=== PATIENT | female | born 1970 ===

== ENCOUNTER 2018-06-02 17:18 | Inpatient (IN) | payer MEDICAID, OTHER ==
--- NOTE | 2018-06-02 18:37 | ED PDOC ---
HPI: Psych/Substance Abuse Time Seen by Provider: 06/02/18 18:12 Chief Complaint (Nursing): Psychiatric Evaluation Chief Complaint (Provider): admission History Per: Patient Additional Complaint(s): 48 yo female, sent from [place] for direct admission to psychiatric floor; however, it was found that pt recently tested (+) for MRSA vis nasal swab. Pt unable to go to the floor at this time if acutely MRSA (+). Pt held in ED psych room at this time. Pt offers no physical complaints. Pt on 1:1 Past Medical History Reviewed: Historical Data, Nursing Documentation, Vital Signs Vital Signs: Last Vital Signs Temp 99.2 F 06/02/18 17:38 Pulse 104 H 06/02/18 17:38 Resp 20 06/02/18 17:38 BP 132/64 06/02/18 17:38 Pulse Ox 100 06/02/18 17:38 - Surgical History Surgical History: No Surg Hx - Family History Family History: States: No Known Family Hx - Living Arrangements Living Arrangements: With Family - Social History Current smoker - smoking cessation education provided: No - Allergies Allergies/Adverse Reactions: Allergies Allergy/AdvReac Type Severity Reaction Status Date / Time No Known Allergies Allergy Verified 06/02/18 17:38 Review of Systems ROS Statement: Except As Marked, All Systems Reviewed And Found Negative Physical Exam - Reviewed Nursing Documentation Reviewed: Yes Vital Signs Reviewed: Yes - Physical Exam Appears: Positive for: Well, Non-toxic, No Acute Distress Head Exam: Positive for: ATRAUMATIC, NORMAL INSPECTION, NORMOCEPHALIC Skin: Positive for: Normal Color, Warm, DRY Eye Exam: Positive for: EOMI, Normal appearance, PERRL ENT: Positive for: Normal ENT Inspection Neck: Positive for: Normal, Painless ROM Cardiovascular/Chest: Positive for: Regular Rate, Rhythm Respiratory: Positive for: CNT, Normal Breath Sounds Gastrointestinal/Abdominal: Positive for: Normal Exam, Soft Back: Positive for: Normal Inspection Extremity: Positive for: Normal ROM Neurologic/Psych: Positive for: Alert, Oriented - ECG O2 Sat by Pulse Oximetry: 100 Medical Decision Making Medical Decision Making: Nursing planning supervisor made aware. Case endorsed to RASHAD Diamond at 1999 pending disposition Disposition - Clinical Impression Clinical Impression: Encounter for medical clearance for patient hold - Patient ED Disposition Is Patient to be Admitted: Transfer of Care - Disposition Disposition: Transfer of Care Disposition Time: 19:27 Condition: STABLE Forms: [facility] (Telugu)
[2018-06-02 20:02] VITALS: O2SAT 99
--- NOTE | 2018-06-02 20:26 | ED PDOC ---
- ECG O2 Sat by Pulse Oximetry: 99 Pulse Ox Interpretation: Normal Medical Decision Making Medical Decision Making: Case was signed out to sql report writer from EITAN Graff As per nurses synthetic department supervisor, isolation room will be provided for patient while admitted. Patient is stable for transfer to psychiatric floor. Disposition - Clinical Impression Clinical Impression: Depression - POA Present On Arrival: None - Disposition Disposition: Admitted as In-Patient Disposition Time: 22:49 Condition: STABLE Forms: [facility] (Ugandan)
[2018-06-02] MEDS ORDERED: DiphenhydrAMINE 50 mg/ml Inj IM PRN (23:22)
[2018-06-02] MEDS ORDERED: Magnesium Hydroxide Susp 30 ml UD PO PRN (23:22)
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
[2018-06-03 08:13] LABS: BASO # 0.1 K/uL (0.0-0.2); BASO % 0.5 % (0.0-2.0); EOS # 0.6 K/uL (0.0-0.7); EOS % 5.3 % (0.0-4.0); HEMOGLOBIN 14.1 g/dL (12.0-16.0); LYMPH # 3.4 K/uL (1.0-4.3); LYMPH % 29.3 % (20.0-40.0); MEAN CELL VOLUME 89.8 fl (81.0-99.0); MEAN CORPUSCULAR HEMOGLOBIN 30.8 pg (27.0-31.0); MEAN CORPUSCULAR HGB CONC 34.3 g/dL (33.0-37.0); MEAN PLATELET VOLUME 8.6 fl (7.2-11.7); MONO # 0.7 K/uL (0.0-0.8); MONO % 5.9 % (0.0-10.0); NRBC % 0.1 % (0.0-0.0); RBC 4.57 Mil/uL (3.80-5.20); RED CELL DISTRIBUTION WIDTH 13.9 % (11.5-14.5); WHITE BLOOD COUNT 11.8 K/uL (4.8-10.8)
[2018-06-03 08:21] LABS: ALB/GLOB RATIO 1.1 (1.0-2.1); ALBUMIN 4.2 g/dL (3.5-5.0); ALT/SGPT 48 U/L (9-52); AST/SGOT 36 U/L (14-36); BLOOD UREA NITROGEN 20 mg/dl (7-17); GFR NON-AFRICAN AMERICAN > 60; HDL CHOLESTEROL 44 MG/DL (30-70)
[2018-06-03 08:32] LABS: LDL CHOLESTEROL 85 mg/dL (0-129)
[2018-06-03 08:34] LABS: T4 7.81 ug/dl (5.5-11.0)
[2018-06-03] MEDS: Mupirocin 2% Oint 1GM UD TOP SCH ×2 (13:00→21:33)
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
[2018-06-04] MEDS: Mupirocin 2% Oint 1GM UD TOP SCH ×2 (11:00→21:28)
--- NOTE | 2018-06-04 15:45 | PCM.PYCHPN ---
Psychiatric Progress Note - Psychiatric Progress Note Patient seen today, length of contact: pt evaluated discussed with team chart reviewed Patient Chief Complaint: I still feel down Problems Identified/Issues Discussed: pt evaluated , seen in bed reported low energy, poor motivation, lack of interest, isolating herself in he room, encouraged pt to participate in treatment and to attend groups, discussed gradual increase in the dose of lexapro, pt reported feeling having no purpose in life after loosing her daughter , CBT provided pt denied any active thoughts of self harm on the unit, denied perceptual disturbances Medical Problems: one previous hospitalization in [place] in 1998 after a suicidal attempt by overdose DSM 5 Symptoms Update: major depression Medication Change: No Medical Record Reviewed: Yes Mental Status Examination - Cognitive Function Orientation: Person, Place, Situation Memory: Intact Attention: WNL Concentration: WNL Association: WNL Fund of Knowledge: [facility] Decription of patient's judgement and insights: partial insight , poor judgment - Mood Mood: Depressed, Anxious - Affect Affect: Constricted, Depressed - Speech Speech: Soft - Formal Thought Process Formal Thought Process: Circumstantial Psychotic Thoughts and Behaviors: pt denied psychotic symptoms, non elicited - Suicidal Ideation Suicidal Ideation: No - Homicidal Ideation Homicidal Ideation: No Goal/Treatment Plan - Goal/Treatment Plan Need for Continued Stay: Severe depression anxiety, Discharge may exacerbated symptoms Progress Toward Problem(s) and Goals/Treatment Plan: lexapro 10mg daily start trazodone 100mg qhs CBT group and supportive therapy
[2018-06-05] MEDS: Mupirocin 2% Oint 1GM UD TOP SCH ×2 (10:12→17:08)
[2018-06-05] MEDS ORDERED: Mupirocin 2% Oint 1GM UD TOP SCH (12:00)
--- NOTE | 2018-06-05 14:49 | PCM.PYCHPN ---
Psychiatric Progress Note - Psychiatric Progress Note Patient seen today, length of contact: pt evaluated discussed with team chart reviewed Patient Chief Complaint: I am worried about my medical and living conditions Problems Identified/Issues Discussed: pt evaluated with treatment team, reported feeling anxious about her daughter, her medical condition, her current financial status and living situation, CBT provided, discussed with patient need to develop healthier coping skill to cope with stress other than self harm, discussed adding neurontin for anxiety and gradual increasing dose of lexapro, discussed with pt the need to attend groups and participation in treatment pt denied any active thoughts of self harm on the unit, denied perceptual disturbances Medical Problems: one previous hospitalization in [place] in 1998 after a suicidal attempt by overdose DSM 5 Symptoms Update: depression borderline personality disorder Medication Change: Yes (start neurontin) Medical Record Reviewed: Yes Mental Status Examination - Cognitive Function Orientation: Person, Place, Situation Memory: Intact Attention: WNL Concentration: WNL Association: WNL Fund of Knowledge: [facility] Decription of patient's judgement and insights: partial insight , poor judgment - Mood Mood: Depressed, Anxious - Affect Affect: Constricted, Depressed - Speech Speech: Soft - Formal Thought Process Formal Thought Process: Circumstantial Psychotic Thoughts and Behaviors: pt denied psychotic symptoms, non elicited - Suicidal Ideation Suicidal Ideation: No - Homicidal Ideation Homicidal Ideation: No Goal/Treatment Plan - Goal/Treatment Plan Need for Continued Stay: Severe depression anxiety, Discharge may exacerbated symptoms Progress Toward Problem(s) and Goals/Treatment Plan: lexapro 10mg daily start neurontin 100mg tid trazodone 100mg qhs CBT group and supportive therapy
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
--- NOTE | 2018-06-07 11:20 | CP.PCM.CON ---
History of Present Illness - History of Present Illness History of Present Illness: 48 y/o female with PMH depression was transferred from another facility for psychiatric admission for management of her depression. MRSA nasal cultures had been positive and ID consulted. Past Patient History - Infectious Disease Hx of Infectious Diseases: None - Past Social History Smoking Status: Never Smoked - CARDIAC Hx Cardiac Disorders: No - PULMONARY Hx Respiratory Disorders: No - NEUROLOGICAL Hx Neurological Disorder: No - HEENT Hx HEENT Problems: No - RENAL Hx Chronic Kidney Disease: No - ENDOCRINE/METABOLIC Hx Endocrine Disorders: No - HEMATOLOGICAL/ONCOLOGICAL Hx Blood Disorders: No - INTEGUMENTARY Hx Dermatological Problems: No - MUSCULOSKELETAL/RHEUMATOLOGICAL Hx Musculoskeletal Disorders: No - GASTROINTESTINAL Hx Gastrointestinal Disorders: No - GENITOURINARY/GYNECOLOGICAL Hx Genitourinary Disorders: No - PSYCHIATRIC Hx Substance Use: No - SURGICAL HISTORY Hx Surgeries: No - ANESTHESIA Hx Anesthesia: No Meds Allergies/Adverse Reactions: Allergies Allergy/AdvReac Type Severity Reaction Status Date / Time No Known Allergies Allergy Verified 06/02/18 17:38 - Medications Medications: Current Medications Acetaminophen (Tylenol 325mg Tab) 650 mg PO Q4 PRN PRN Reason: pain level 4-7 Last Admin: 06/05/18 17:08 Dose: 650 mg Al Hydrox/Mg Hydrox/Simethicone (Maalox Plus 30 Ml) 30 ml PO Q4 PRN PRN Reason: Dyspepsia Diphenhydramine HCl (Benadryl) 50 mg IM Q6 PRN PRN Reason: Extrapyramidal S/S Unable PO Diphenhydramine HCl (Benadryl) 50 mg PO Q6 PRN PRN Reason: Extrapyramidal Symptoms Diphenhydramine HCl (Benadryl) 50 mg PO HS PRN PRN Reason: Sleep Escitalopram Oxalate (Lexapro) 10 mg PO DAILY [facility] Last Admin: 06/07/18 09:42 Dose: 10 mg Gabapentin (Neurontin) 100 mg PO TID [facility] Last Admin: 06/07/18 09:43 Dose: 100 mg Haloperidol (Haldol) 5 mg PO Q4 PRN PRN Reason: Agitation Haloperidol Lactate (Haldol) 5 mg IM Q4 PRN PRN Reason: Agitation, Unable to Take PO Lorazepam (Ativan) 1 mg IM Q8H PRN PRN Reason: Anxiety/Agitation,Unable PO Lorazepam (Ativan) 1 mg PO Q8H PRN PRN Reason: Anxiety/Agitation Last Admin: 06/05/18 13:25 Dose: 1 mg Magnesium Hydroxide (Milk Of Magnesia) 30 ml PO HS PRN PRN Reason: Constipation Trazodone HCl (Desyrel) 100 mg PO HS [facility] Last Admin: 06/06/18 21:31 Dose: 100 mg Physical Exam - Skin Additional comments: no abrasion, lacerations or ulcers seen in the extremities or trunk or face Results - Vital Signs Recent Vital Signs: Last Vital Signs Temp 97.9 F 06/07/18 09:21 Pulse 92 H 06/07/18 09:21 Resp 20 06/07/18 09:21 BP 118/79 06/07/18 09:21 Pulse Ox 99 06/02/18 22:49 - Labs Result Diagrams: 06/03/18 07:58 06/03/18 07:58 Assessment & Plan - Assessment and Plan (Free Text) Assessment: MRSA nares, no foci on body found. Bactroban cream apply both nares bid for 5 days. Repeat MRSA culture is negative
[2018-06-07] MEDS ORDERED: OXcarbazepine 300 mg/5 ml Syringe PO STA (14:16)
--- NOTE | 2018-06-07 14:31 | PCM.PYCHPN ---
Psychiatric Progress Note - Psychiatric Progress Note Patient seen today, length of contact: pt evaluated discussed with team chart reviewed Patient Chief Complaint: I want a car and a place to live Problems Identified/Issues Discussed: pt evaluated , presenting with labile affect, hypomanic, overproductive speech, laughing inappropriately with circumstantial thought process , needs frequent re direction continues to report passive suicidal thoughts stating she is fearful to hurt herself if discharged and having to be homeless after loosing her daughter and all her social support, discussed with patient starting seroquel as mood stabilizer , encouraged to attend groups pt denied any active thoughts of self harm on the unit, denied perceptual disturbances Medical Problems: one previous hospitalization in [place] in 1998 after a suicidal attempt by overdose DSM 5 Symptoms Update: bipolar disorder mixed borderline personality disorder Medication Change: Yes (start seroquel) Medical Record Reviewed: Yes Mental Status Examination - Cognitive Function Orientation: Person, Place, Situation Memory: Intact Attention: WNL Concentration: Poor Association: WNL Fund of Knowledge: WNL Decription of patient's judgement and insights: partial insight , poor judgment - Mood Mood: Anxious - Affect Affect: Other Additional comments: elevated , labile hypomanic - Speech Speech: Loud, Pressured - Formal Thought Process Formal Thought Process: Circumstantial Psychotic Thoughts and Behaviors: pt denied psychotic symptoms, non elicited - Suicidal Ideation Suicidal Ideation: No - Homicidal Ideation Homicidal Ideation: No Goal/Treatment Plan - Goal/Treatment Plan Need for Continued Stay: Severe depression anxiety, Discharge may exacerbated symptoms Progress Toward Problem(s) and Goals/Treatment Plan: discontinue neurontin and trazodone start seroquel 25mg bid and 200mg qhs continue lexapro 10mg daily monitor pt for psychopharmacological effects and side effect profile CBT group and supportive therapy
[2018-06-08] MEDS ORDERED: OXcarbazepine 300 mg/5 ml Syringe PO SCH (09:00)
--- NOTE | 2018-06-08 10:11 | PCM.PYCHPN ---
Psychiatric Progress Note - Psychiatric Progress Note Patient seen today, length of contact: Pt evaluated, case discussed w/ team, chart reviewed Patient Chief Complaint: "I can't sleep" Problems Identified/Issues Discussed: Patient reports poor sleep (approx 3 hrs/night). She continues to be labile w/ pressured, overproductive speech. She discussed her anxieties about being homeless and having to live in a car. She was disorganized and tangential on conversation. She was not agreeable to increasing the Seroquel at this time. No adverse effects to medications reported. Medication Change: No Medical Record Reviewed: Yes Consults ordered or reviewed: Medicine consult Mental Status Examination - Cognitive Function Orientation: Person, Place, Situation Memory: Intact Attention: WNL Concentration: Poor Association: Loose Fund of Knowledge: WNL Decription of patient's judgement and insights: Poor I/J - Mood Mood: Anxious - Affect Affect: Other (Labile) - Speech Speech: Pressured - Formal Thought Process Formal Thought Process: Loosening of associations, Circumstantial Psychotic Thoughts and Behaviors: Denies AH/VH/paranoia - Suicidal Ideation Suicidal Ideation: No - Homicidal Ideation Homicidal Ideation: No Goal/Treatment Plan - Goal/Treatment Plan Need for Continued Stay: Remain at risks for inpatient hospitalization, Severe depression anxiety, Discharge may exacerbated symptoms Progress Toward Problem(s) and Goals/Treatment Plan: Bipolar Disorder; Borderline Personality Disorder -Individual and group therapy -Medicine consult -Psychoeducation -Continue Lexapro and Seroquel -Disposition planning Estimated Date of D/C: 06/11/18
--- NOTE | 2018-06-09 10:15 | PCM.PYCHPN ---
Psychiatric Progress Note - Psychiatric Progress Note Patient seen today, length of contact: Pt evaluated, case discussed w/ team, chart reviewed Patient Chief Complaint: "I can't sleep" Problems Identified/Issues Discussed: Patient reports poor sleep. She continues to be labile w/ pressured, overproductive speech. She was not agreeable to increasing the Seroquel at this time. No adverse effects to medications reported. Medication Change: No Medical Record Reviewed: Yes Consults ordered or reviewed: Medicine consult Mental Status Examination - Cognitive Function Orientation: Person, Place, Situation, Time Memory: Intact Attention: WNL Concentration: Poor Association: Loose Fund of Knowledge: WNL Decription of patient's judgement and insights: Poor I/J - Mood Mood: Anxious - Affect Affect: Other (Labile) - Speech Speech: Pressured - Formal Thought Process Formal Thought Process: Loosening of associations, Circumstantial Psychotic Thoughts and Behaviors: Denies AH/VH/paranoia - Suicidal Ideation Suicidal Ideation: No - Homicidal Ideation Homicidal Ideation: No Goal/Treatment Plan - Goal/Treatment Plan Need for Continued Stay: Remain at risks for inpatient hospitalization, Severe depression anxiety, Discharge may exacerbated symptoms Progress Toward Problem(s) and Goals/Treatment Plan: Bipolar Disorder; Borderline Personality Disorder -Individual and group therapy -Medicine consult -Psychoeducation -Continue Lexapro and Seroquel -Disposition planning Estimated Date of D/C: 06/12/18
--- NOTE | 2018-06-10 14:11 | PCM.PYCHPN ---
Psychiatric Progress Note - Psychiatric Progress Note Patient seen today, length of contact: Pt evaluated, case discussed w/ team, chart reviewed Patient Chief Complaint: I will find a job so I can get my daughter Problems Identified/Issues Discussed: pt evaluated , continues to be labile, speech over productive , thought form circumstantial,reported she needs to leave so she can start finding a job and getting her daughter back, pt reported improved sleep and appetite denied any current flash backs, discussed with her increasing seroquel and decresing lexapro PT agreed to start outpatient therapy, denied any active thoughts of self harm on the unit, denied perceptual disturbances Medical Problems: one previous hospitalization in [place] in 1998 after a suicidal attempt by overdose DSM 5 Symptoms Update: bipolar disorder depressed Borderline personality disorder post traumatic stress disorder Medication Change: Yes (increase seroquel decrease lexapro) Medical Record Reviewed: Yes Mental Status Examination - Cognitive Function Orientation: Person, Place, Situation, Time Memory: Intact Attention: WNL Concentration: WNL Association: WNL Fund of Knowledge: WNL - Mood Mood: Anxious - Affect Affect: Other (Labile) - Speech Speech: Loud, Pressured - Formal Thought Process Formal Thought Process: Loosening of associations, Circumstantial - Suicidal Ideation Suicidal Ideation: No - Homicidal Ideation Homicidal Ideation: No Goal/Treatment Plan - Goal/Treatment Plan Need for Continued Stay: Remain at risks for inpatient hospitalization, Severe depression anxiety, Discharge may exacerbated symptoms Progress Toward Problem(s) and Goals/Treatment Plan: increase seroquel 25mg bid and 300mg qhs decrease lexapro 5mg daily monitor pt for psychopharmacological effects and side effect profile CBT group and supportive therapy Estimated Date of D/C: 06/12/18
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
[2018-06-11] MEDS: Alum-Mag Hydrox-Simethicone Susp (30 mL) PO PRN (20:47)
[2018-06-12] MEDS: Alum-Mag Hydrox-Simethicone Susp (30 mL) PO PRN (17:38)
--- NOTE | 2018-06-12 18:26 | PCM.PYCHPN ---
Psychiatric Progress Note - Psychiatric Progress Note Patient seen today, length of contact: Pt evaluated, case discussed w/ team, chart reviewed Patient Chief Complaint: I feel better going to a friend,s house Problems Identified/Issues Discussed: pt evaluated with treatment team reported improved sleep speech is less pressured and mood is less labile, ,discharge plan discussed with pt and with DCP&P, upon pt consent,pt has decided to reside with a friend on discharge , confirmed by family welfare social work professor pt in agreement to start follow up treatment at [facility] , CBT provided , encouraged compliance with medications and therapy on discharge denied any active thoughts of self harm on the unit, denied perceptual disturbances Medical Problems: one previous hospitalization in [place] in 1998 after a suicidal attempt by overdose DSM 5 Symptoms Update: borderline personality disorder bipolar disorder depressed PTSD Medication Change: Yes (d/c am seroquel) Medical Record Reviewed: Yes Mental Status Examination - Cognitive Function Orientation: Person, Place, Situation, Time Memory: Intact Attention: WNL Concentration: WNL Association: WNL Fund of Knowledge: WNL - Mood Mood: Anxious - Affect Affect: Other (Labile) - Speech Speech: Loud - Formal Thought Process Formal Thought Process: Circumstantial Psychotic Thoughts and Behaviors: pt denied psychotic symptoms, non elicited - Suicidal Ideation Suicidal Ideation: No - Homicidal Ideation Homicidal Ideation: No Goal/Treatment Plan - Goal/Treatment Plan Need for Continued Stay: Remain at risks for inpatient hospitalization, Severe depression anxiety, Discharge may exacerbated symptoms Progress Toward Problem(s) and Goals/Treatment Plan: seroquel 300mg qhs lexapro 5mg daily monitor pt for psychopharmacological effects and side effect profile CBT group and supportive therapy disposition plan by family welfare social work professor Estimated Date of D/C: 06/14/18
[2018-06-13 09:26] VITALS: BP 129/82; PULSE 94; RESP 20; TEMP 98.1
== END 2018-06-13 15:22 | disposition home or self-care (01) | DRG 885 ==
LOC: H.ER 17:18 → H.ERHOLD 22:48 → H.ER 23:04 → H.PSYCH 23:10
PROVIDERS: ADMIT Psychiatry & Neurology Psychiatry; ATTEND Psychiatry & Neurology Psychiatry
PROC: GZHZZZZ Group Psychotherapy (ICD-10-PCS; principal; 2018-06-02)
PROC: GZ58ZZZ Individual Psychotherapy, Cognitive-Behavioral (ICD-10-PCS; 2018-06-02)
DX: F33.2 Major depressive disorder, recurrent severe without psychotic features (principal); R45.851 Suicidal ideations; F43.10 Post-traumatic stress disorder, unspecified; F60.3 Borderline personality disorder; F41.9 Anxiety disorder, unspecified; Z22.322 Carrier or suspected carrier of Methicillin resistant Staphylococcus aureus; Z91.5 Personal history of self-harm; Z59.0 Homelessness